=== PATIENT | male | born 1980 | race African-American/Black ===

== ENCOUNTER 2023-05-26 09:23 | Emergency (ER) | payer MEDICAID ==
[~2023-05-26] VITALS: Ht 180.3 cm; Wt 132.0 kg
[2023-05-26 09:47] VITALS: TEMP 98.2
[2023-05-26] MEDS ORDERED: cefTRIAXone SODIUM 250 MG VL IM ONE (10:00)
[2023-05-26] MEDS ORDERED: PENICILLIN G BENZ 1,200,000 UNITS/2 ML SYRG IM ONE (10:00)
[2023-05-26] MEDS ORDERED: HYDROcodone-ACET 10/325MG TAB PO ONE (10:00)
[2023-05-26] MEDS ORDERED: AZITHROMYCIN 250 MG TAB PO ONE (10:00)
[2023-05-26 10:27] LABS: Basophils # (auto) 0.1 10 ^3/uL (0-0.2); Basophils % (auto) 1.1 % (0.0-2.0); Eosinophils # (auto) 0.1 10 ^3/uL (0-0.8); Eosinophils % (auto) 0.9 % (0.0-7.0); Hematocrit 43.1 % (41.0-53.0); Lymphocytes # (auto) 4.4 10 ^3/uL (0.4-5.4); Lymphocytes % (auto) 51.7 % (10.0-50.0); Mean Corpuscular Hemoglobin 27.2 pg (28.0-32.0); Mean Corpuscular Hgb Conc. 32.5 g/dL (32.0-36.0); Mean Corpuscular Volume 83.5 fL (80.0-100.0); Monocytes # (auto) 0.6 10 ^3/uL (0-1.3); Monocytes % (auto) 6.6 % (0.0-12.0); Neutrophils # (auto) 3.3 10 ^3/uL (1.6-8.6); Neutrophils % (auto) 39.7 % (37.0-80.0); Nucleated Red Blood Cells % 0.1 %; Red Blood Cells 5.16 10^6/uL (4.5-5.90); Red Cell Distribution Width 15.1 % (11.8-14.3); White Blood Cell 8.4 10^3/uL (4.4-10.8)
[2023-05-26 10:33] LABS: Urine Bacteria NONE SEEN /hpf (None Seen); Urine Blood TRACE /uL (Negative); Urine Clarity Clear (Clear); Urine Color Yellow (Yellow); Urine Hyaline Cast FEW /lpf (0 - 2); Urine Mucus FEW (None Seen); Urine Protein, UAD TRACE (Negative); Urine Specific Gravity 1.028 (1.001-1.035); Urine Urobilinogen Normal (Negative); Urine WBC 1 /hpf (0 - 3); Urine pH 5.5 (5.0-8.0)
[2023-05-26 10:52] LABS: Alanine Aminotransferase 32 U/L (7-40); Albumin 4.5 g/dL (3.2-4.8); Alkaline Phosphatase 64 U/L (46-116); Anion Gap 6 (5-15); Aspartate Aminotransferase 31 U/L (13-40); BUN/Creatinine Ratio 8.3 (10.0-20.0); Bilirubin, Total 0.4 mg/dL (0.2-1.0); Blood Urea Nitrogen 8 mg/dL (9-23); Calcium 9.4 mg/dL (8.7-10.4); Carbon Dioxide 27 mmol/L (20-30); Chloride 105 mmol/L (98-107); Glucose 90 mg/dL (74-106); Potassium 3.9 mmol/L (3.5-5.1); Sodium 138 mmol/L (136-145); Total Protein 8.1 g/dL (5.7-8.2); Uric Acid 8.4 mg/dL (3.7-9.2)
[2023-05-26] MEDS ORDERED: IBUP-1455 PO (12:05)
[2023-05-26] MEDS ORDERED: TRAM50TA2 PO (12:05)
[2023-05-26 12:12] VITALS: BP 135/79; PULSE 78; RESP 16; O2SAT 97
[2023-05-27 07:07] LABS: RPR Non Reactive (Non Reactive)
[2023-05-29 06:06] LABS: Chlamydia Trachomatis, NAA Negative (Negative); Neisseria gonorrhoeae, NAA Negative (Negative)
== END 2023-05-26 12:12 | disposition home or self-care (01) ==
LOC: ER 09:23
DX: M54.31 Sciatica, right side (principal); M10.9 Gout, unspecified; Z20.2 Contact with and (suspected) exposure to infections with a predominantly sexual mode of transmission
CPT/HCPCS: 36415; 72100; 80053; 81001; 84550; 85025; 86592; 87491; 87591; 96372; 99284; J0561; J0696